=== PATIENT | female | born 1955 | race Caucasian/White ===

== ENCOUNTER 2022-05-22 21:18 | Emergency (ER) | payer OTHER, SELFPAY ==
[2022-05-22 21:37] VITALS: BP 166/97; PULSE 95; RESP 18; TEMP 37.1; O2SAT 97
--- NOTE | 2022-05-22 22:03 | W.ED.DENTAL ---
HPI - Dental/Oral General: Chief complaint: Dental/Oral Stated complaint: lips/face numb swollen Time Seen by Provider: 05/22/22 21:44 History of Present Illness: Patient is a 67-year-old female who comes to the ED with dental pain. Symptoms started approximately 4 days ago. She has had multiple dental crowns and caps placed and she thinks a couple of them have gotten loose or broken. Tonight he went to sleep and then woke up later tonight and felt some swelling in her upper lip and left side of face. Denies any trouble breathing. Patient has not contacted any dentist to address dental pain. Associated symptoms: Denies fever(s) or odynophagia Review of Systems Const: Denies: fever(s), chills or fatigue Eyes: Denies: change in vision or eye discomfort ENMT: Reports: dental pain; Denies: throat pain, odynophagia, nasal discharge or nasal congestion Card: Denies: chest pain, palpitations, edema, swelling of feet/ankles, dyspnea on exertion or orthopnea Resp: Denies: dyspnea, productive cough or non-productive cough GI: Denies: abdominal pain, nausea, vomiting, diarrhea, constipation or hematochezia : Denies: flank pain, dysuria or hematuria Musc: Denies: neck pain, back pain or extremity swelling Skin/Breast: Denies: rash or new lesions Neuro: Denies: headache(s), numbness in extremities or weakness in extremities [facility] ED PFSH: Medical History (Updated 05/23/22 @ 00:47 by SHARONDA Alford) No pertinent family history No pertinent past medical history Physical Exam Const: COMMON NORMALS: no acute distress, patient oriented x3, healthy appearing and alert GENERAL APPEARANCE: cooperative and comfortable HENMT: COMMON NORMALS: normocephalic HEAD & SCALP: normocephalic FACE & SINUS: edema on the left maxilla and upper lip (gingival swelling in front teeth making upper lip little swollen) MOUTH: Normal oral and palatal mucosa present TEETH & GINGIVA: Yes caries and Yes poor dentition THROAT: posterior oropharynx normal and uvula midline Neck/C-Spine: COMMON NORMALS: supple GENERAL: Yes normal visual inspection Resp: COMMON NORMALS: normal respiratory effort, No retractions, No use of accessory muscles and clear to auscultation bilaterally AUSCULTATION: clear to auscultation bilaterally Cardio: COMMON NORMALS: regular rate, regular rhythm, S1 normal heart sound present, S2 normal heart sound present, No gallops present (Cardio), No clicks present (Cardio), No murmurs present (Cardio) and Peripheral pulses 2+ throughout RATE: regular rate RHYTHM: regular rhythm HEART SOUNDS: S1 normal heart sound present and S2 normal heart sound present PERIPHERAL PULSES: Peripheral pulses 2+ throughout GI: COMMON NORMALS: Normal to inspection, nondistended, normoactive bowel sounds present, Soft to palpation, non-tender and no masses PALPATION: Yes Soft to palpation : COMMON NORMALS: Yes no CVA tenderness BLADDER/KIDNEY EXAM: Yes no CVA tenderness Back/Pelvis: COMMON NORMALS: no CVA tenderness Extremity: COMMON NORMALS: normal to inspection Neuro: COMMON NORMALS: patient oriented x3 SENSORIUM/ORIENTATION: Yes alert GAIT: Yes Normal gait present Skin: GENERAL SKIN EXAM: dry skin Course Vital Signs: Vital signs: Vital Signs Temperature 98.8 F 05/22/22 21:37 Pulse Rate 88 05/22/22 22:18 Respiratory Rate 16 05/22/22 22:18 Blood Pressure 158/81 05/22/22 22:18 Pulse Oximetry 97 05/22/22 22:18 Oxygen Delivery Me thod 05/22/22 21:37 MDM - Dental/Oral Medical Decision Making Patient is a 67-year-old female who comes to the ED with dental pain. Symptoms started approximately 4 days ago. She has had multiple dental crowns and caps placed and she thinks a couple of them have gotten loose or broken. Tonight he went to sleep and then woke up later tonight and felt some swelling in her upper lip and left side of face. Denies any trouble breathing. Vitals are stable. Patient appears nontoxic in no acute distress. She has poor dentition and she has some mild swelling to the left maxillary region and gingival swelling in front teeth making upper lip little swollen. Patient diagnosed with dental pain and discharged home with prescription for clindamycin. She was told to follow-up with dentist as soon as possible to have dental pain treated. Return to ED precautions given. Patient understood and agreed with plan. Discharge Plan Discharge Patient Disposition: Home Clinical Impression: Pain, dental Condition: Stable Prescriptions: New clindamycin HCl 150 mg capsule 300 mg PO QID 7 Days Qty: 56 0RF Discharge Orders: Discharge ED (Routine); Ordered 05/22/22 Ordered By: Moncho Estrada Referrals: Zhao Patel DO [Primary Care Provider] - Discharge Diet: Regular Discharge Activity: Increase activity as tolerated Activity Restrictions/Additional Instructions: Follow-up with dentist as soon as possible to have dental pain treated. Take medications as prescribed. Return to the ER or your medical provider if condition worsens. Please read and understand discharge instructions. Thank you for choosing [facility] for your healthcare needs today. Please realize this is an emergency room and that we are providing you with a medical screening exam and this may not be complete and all inclusive of all the testing and or work up that you may need to determine your ailment or severity of your illness. It is very important that you follow up as instructed or that you return to the Emergency Department should you have concerns or if your condition changes or worsens in any way. Coding Level of Care Code ED Bottle Sorter for Rhys Fwd Exam Comprehensive
[2022-05-22] MEDS: clindamycin 150 mg Capsule 300 MG PO (22:16)
[2022-05-22 22:18] VITALS: BP 158/81; PULSE 88; RESP 16; O2SAT 97
== END 2022-05-22 22:19 | disposition home or self-care (01) ==
PROVIDERS: Emergency Provider Physician Assistant
DX: K08.89 Other specified disorders of teeth and supporting structures (principal)
CPT/HCPCS: 99283